=== PATIENT | female | born 1990 | race Caucasian/White ===

== ENCOUNTER 2018-06-29 00:03 | Observation (INO) ==
[2018-06-29] MEDS ORDERED: PENICILLIN G POTASSIUM 5 MILLIONUNT in DEXTROSE 5 % IN WATER 100 ML IV ONE ×2 (00:53)
[2018-06-29] MEDS ORDERED: BETAMETHASONE ACETATE,SOD PHOS 6 MG/ML VIAL IM ONE (00:53)
[2018-06-29] MEDS ORDERED: RINGER'S SOLUTION,LACTATED 1,000 ML IV PRN ×2 (00:53→01:02)
[2018-06-29] MEDS ORDERED: TERBUTALINE SULFATE 1 MG/ML VIAL SC ONE ×2 (01:13→03:11)
[2018-06-29 02:02] LABS: Urine Bilirubin Negative (NEGATIVE); Urine Blood Negative /ul (NEGATIVE); Urine Ketone Negative (NEGATIVE); Urine Nitrite Negative (NEGATIVE); Urine Protein Negative (NEGATIVE); Urine Specific Gravity <=1.005 SP.GR. (1.005-1.010); Urine Urobilinogen Normal (NORMAL)
[2018-06-29 02:03] LABS: Urine Appearance Clear (CLEAR); Urine Bacteria TRACE; Urine Color Pale Yellow; Urine RBC None Seen /hpf (0-5); Urine WBC TRACE /hpf (0-5)
[2018-06-29 02:15] LABS: Cocaine Ur Negative (NEGATIVE); Urine Barbiturate Negative (NEGATIVE); Urine Benzodiazepines Negative (NEGATIVE); Urine Opiates Negative (NEGATIVE); Urine PCP Negative (NEGATIVE); Urine THC Negative (NEGATIVE)
--- NOTE | 2018-06-29 03:18 | HP ---
Chief Complaint - Chief Complaint Date of Service: 06/29/18 Time of Service: 02:57 Chief Complaint: contractions History of Present Illness: 28 yo at 33 1/7 weeks presents to L&D complaining of contractions of increasing frequency and intensity over the past several hours which have failed to respond to conservative measures. Patient denies recent coitus, trauma, or illness. Denies LOF, vaginal bleeding, or decreased movement. This pegnancy complicated by anemia, threatened labor and tobacco use. Rh negative Rubella immune GBS positive Medical History (Last Reviewed 06/29/18 @ 03:02 by Roger Rose DO) Tobacco abuse Onset Date: 10/29/13 Anemia affecting Onset Date: 10/24/13 10/24/13 & 05/24/18 Epigastric pain History of chlamydia infection Onset Date: ~2008 History of wisdom tooth extraction Onset Date: ~09/2012 Surgical History: Surgical History (Last Reviewed 06/29/18 @ 03:02 by Roger Rose DO) Hx of cholecystectomy Onset Date: 10/16/12 Family History: Family History (Last Reviewed 06/29/18 @ 03:02 by Roger Rose DO) Father Alive and well Mother Alive and well Grandfather Multiple sclerosis Social History: Preferred Language Thai Smoking Status Former smoker (Last Updated 06/14/18 @ 10:56 by Roger Rose DO) No Social History Section defined Review Of Systems (GEN) - Review of Systems Generalized/Overall Review: Present: No Symptoms Reported EENTM: Present: No Symptoms Reported Respiratory: Present: No Symptoms Reported Cardiac: Present: No Symptoms Reported Abdominal: Present: Other - contractions Genitourinary: Present: No Symptoms Reported Musculoskeletal: Present: No Symptoms Reported Neurological: Present: No Symptoms Reported Skin: Present: No Symptoms Reported Endocrine: Present: No Symptoms Reported Immunizations: IMMUNIZATION HX Immunizations Up to Date Yes History of Influenza Vaccine No Hx Pneumococcal Vaccination No Allergies/Adverse Reactions: Allergies Allergy/AdvReac Type Severity Reaction Status Date / Time No Known Allergies Allergy Verified 06/29/18 02:03 Home Medications: HOME MEDICATIONS Vits96/Iron Fum/Folic [ S] 1 tab PO DAILY 01/01/14 [Last Taken 12/30/13 21:00] ferrous sulfate 325 mg (65 mg iron) tablet 325 mg PO DAILY #30 tab 05/24/18 [Last Taken Unknown] Exam - Exam Vital Signs: T 36.6 C, BP 119/59, P 96, R 18, O2 98% Constitutional: Present: Alert, Oriented x3, Cooperative, Mild distress ENT Exam: Present: hearing grossly normal Breasts: Present: Exam deferred Respiratory: Present: lungs clear, no respiratory distress Cardiovascular/Chest: Present: normal peripheral pulses, regular rate, rhythm, no edema Abdomen: Present: soft, nontender, no rebound tenderness, other - gravid /Rectal: Present: Other - cervix changed from cl/th/high to 1/80/-2. Extremity: Present: no pedal edema, no calf tenderness Skin Exam: Present: normal color, warm/dry, no cyanosis Neurologic: Present: alert, normal mood/affect, oriented x 3 Appearance: Present: appropriate appearance, appropriate insight Eye contact: Present: cooperative, good eye contact, normal speech Thoughts: Present: normal thought pattern Diagnostic Studies: Abnormal Lab Results 06/29/18 Range/Units 02:00 Ur Leukocyte Esterase 75 H (NEGATIVE) /ul Laboratory Results Urine Color Pale yellow 06/29/18 02:00 Urine Appearance Clear (CLEAR) 06/29/18 02:00 Urine pH 7.0 pH (5.0-7.0) 06/29/18 02:00 Ur Specific [place] <=1.005 SP.GR. (1.005-1.010) 06/29/18 02:00 Urine Protein Negative mg/dL (NEGATIVE) 06/29/18 02:00 Urine Glucose (UA) Negative mg/dL (NEGATIVE) 06/29/18 02:00 Urine Ketones Negative mg/dL (NEGATIVE) 06/29/18 02:00 Urine Blood Negative /ul (NEGATIVE) 06/29/18 02:00 Urine Nitrate Negative (NEGATIVE) 06/29/18 02:00 Urine Bilirubin Negative mg/dl (NEGATIVE) 06/29/18 02:00 Urine Urobilinogen Normal EU/dl (NORMAL) 06/29/18 02:00 Ur Leukocyte Esterase 75 /ul (NEGATIVE) H 06/29/18 02:00 Urine RBC None seen /hpf (0-5) 06/29/18 02:00 Urine WBC Trace /hpf (0-5) 06/29/18 02:00 Ur Epithelial Cells 0-5 /hpf (0-5) 06/29/18 02:00 Urine Bacteria Trace (NONE) 06/29/18 02:00 Urine Opiates Screen Negative (NEGATIVE) 06/29/18 02:00 Barbiturate Screen Negative (NEGATIVE) 06/29/18 02:00 Ur Phencyclidine Scrn Negative (NEGATIVE) 06/29/18 02:00 Urine Amphetamine Negative (NEGATIVE) 06/29/18 02:00 U Benzodiazepines Scrn Negative (NEGATIVE) 06/29/18 02:00 Urine Cocaine Screen Negative (NEGATIVE) 06/29/18 02:00 Urine Marijuana (THC) Negative (NEGATIVE) 06/29/18 02:00 Bedside ultrasound - vertex NST reactive. FHT 130, good BTBV, accelerations, no decels CTXs q1-2 min Assessment/Plan - Assessment/Plan (1) labor in third trimester Assessment: Due to patient's status below our nursery's capability, the inability to stop contractions and cervical change will transfer to [facility]. Accepting physician is Dr. Bean. Problem: Acute Qualifiers: labor delivery status: without delivery Qualified Code(s): O60.03 - labor without delivery, third trimester (2) Group beta Strep positive Problem: Acute (3) Tobacco abuse Problem: Acute (4) Anemia Problem: Acute Qualifiers: Anemia type: iron deficiency Iron deficiency anemia type: inadequate dietary iron intake Qualified Code(s): D50.8 - Other iron deficiency anemias
[2018-06-29] MEDS ORDERED: PENICILLIN G POTASSIUM 2.5 MILLIONUNT in DEXTROSE 5 % IN WATER 100 ML IV SCH ×2 (05:00)
== END 2018-06-29 03:35 | disposition short-term general hospital (02) ==
LOC: OBCLINIC 00:03 → OB 00:03
PROVIDERS: ADMIT Obstetrics & Gynecology; ATTEND Obstetrics & Gynecology
DX: O60.03 Preterm labor without delivery, third trimester; D50.8 Other iron deficiency anemias
CPT/HCPCS: 59025; 80307; 81001; 96372; G0378

== ENCOUNTER 2018-07-31 15:36 | Inpatient (IN) ==
[2018-07-31] MEDS: RINGER'S SOLUTION,LACTATED 1,000 ML IV ONE ×2 (16:14→20:14)
[2018-07-31] MEDS ORDERED: PENICILLIN G POTASSIUM 5 MILLIONUNT in DEXTROSE 5 % IN WATER 100 ML IV ONE ×2 (16:47)
[2018-07-31] MEDS ORDERED: OXYTOCIN/DEXTROSE 5%-WATER 30 UNITS/500 ML BAG IV ONE ×2 (16:47→22:59)
[2018-07-31] MEDS ORDERED: ONDANSETRON HCL/PF 2 MG/ML VIAL IV PRN ×2 (16:47→16:51)
[2018-07-31] MEDS ORDERED: NALOXONE HCL 1 MG/1 ML SYRG IV PRN (16:51)
[2018-07-31] MEDS ORDERED: BUPIVACAINE HCL/0.9 % NACL/PF 250 ML EP PRN (16:51)
--- NOTE | 2018-07-31 16:55 | ANES ---
Anesthesia Pre Procedure Eval HOME MEDICATIONS Vits96/Iron Fum/Folic [ S] 1 tab PO DAILY 01/01/14 [Last Taken 07/29/18 07:15] ferrous sulfate 325 mg (65 mg iron) tablet 325 mg PO DAILY #30 tab 05/24/18 [Last Taken 07/31/18 09:15] Allergies/Adverse Reactions: Allergies Allergy/AdvReac Type Severity Reaction Status Date / Time No Known Allergies Allergy Verified 07/31/18 15:16 - Planned Procedure Planned Procedure: Labor epidural Medication List Reviewed:: Yes Allergies Verified: Yes Medical History (Last Reviewed 07/31/18 @ 16:53 by Patrick Armijo CRNA) Tobacco abuse Onset Date: 10/29/13 Anemia affecting Onset Date: 10/24/13 10/24/13 & 05/24/18 Epigastric pain History of chlamydia infection Onset Date: ~2008 History of wisdom tooth extraction Onset Date: ~09/2012 Surgical History (Last Reviewed 07/31/18 @ 16:53 by Patrick Armijo CRNA) Hx of cholecystectomy Onset Date: 10/16/12 Family History (Last Reviewed 07/31/18 @ 16:53 by Patrick Armijo CRNA) Father Alive and well Mother Alive and well Grandfather Multiple sclerosis - Respiratory Smoking Status: Current every day smoker Discussed smoking cessation including day of surgery: No - Cardiovascular Tolerate Activity: Good Heart Sounds: S1 & S2, Regular - Anesthesia Assessment and Plan ASA Class: PS, II Anesthesia Type Plan: Epidural
[2018-07-31] MEDS ORDERED: BUPIVACAINE HCL/PF 30 ML VIAL EP SCH (17:00)
--- NOTE | 2018-07-31 17:27 | ANES ---
Anesthesia Procedure Note Procedure Note: ANESTHESIA PROCEDURE NOTE Date of Procedure: 07/31/2018. Time of procedure: 1710. Performed by: Patrick Armijo CRNA Pickup Driver: None. Preprocedure diagnosis: Active labor. Post procedure diagnosis: Same. Procedure: Insertion of labor epidural. Indications: The patient is a 28 -year-old female in active labor requesting labor epidural for pain management. Findings: See below. Details of the procedure: The patient was placed in a sitting position. DuraPrep as well as Betadine swabs X3 was applied to the patient's back. Patient was then draped in a sterile fashion. Lidocaine 1% was infiltrated to the skin and subcutaneous tissues at the level of the L3-4 interspace. The epidural space was identified using a 18-gauge Tuohy needle with [id number] technique. Epidural catheter was inserted to a depth of 10 centimeters at skin. Negative test dose was elicited using 3 mL of 1.5% preservative-free lidocaine plus epinephrine 1 200,000. The epidural catheter was then taped and secured in place. A loading dose of 8 mL of 0.25% preservative-free bupivacaine was administered to the epidural catheter after negative aspiration for blood and CSF. EBL: Minimal. Fluids: N/A. Specimen: N/A. Post procedure condition: The patient tolerated the procedure well. No complications were noted. Thank you for this consultation. Patrick Armijo CRNA
--- NOTE | 2018-07-31 17:30 | ANES ---
Post Anesthesia Assessment - Vital Signs Vitals: Last Vital Signs Temp 36.9 C 07/31/18 17:28 Pulse 90 07/31/18 17:28 Resp 18 07/31/18 17:28 BP 113/70 07/31/18 17:28 Pulse Ox 100 07/31/18 17:28 Airway Patency: Normal - Mental Status Level Of Consciousness: Awake - Pain Level Pain Score: 0 - N/V Assessment Nausea/Vomiting Presence: None Dehydration:: No
--- NOTE | 2018-07-31 18:02 | HP ---
Chief Complaint - Chief Complaint Date of Service: 07/31/18 Time of Service: 17:58 Chief Complaint: contractions History of Present Illness: 28 yo at 37 5/7 weeks presents to L&D complaining of contractions with increasing frequency and intensity. This complicated by anemia, smoking and PTL. Rh negative Rubella immune GBS positive Medical History (Last Reviewed 07/31/18 @ 18:08 by Roger Rose DO) Tobacco abuse Onset Date: 10/29/13 Anemia affecting Onset Date: 10/24/13 10/24/13 & 05/24/18 Epigastric pain History of chlamydia infection Onset Date: ~2008 History of wisdom tooth extraction Onset Date: ~09/2012 Surgical History: Surgical History (Last Reviewed 07/31/18 @ 18:08 by Roger Rose DO) Hx of cholecystectomy Onset Date: 10/16/12 Family History: Family History (Last Reviewed 07/31/18 @ 18:08 by Roger Rose DO) Father Alive and well Mother Alive and well Grandfather Multiple sclerosis Social History: Preferred Language Kiswahili Smoking Status Current every day smoker (Last Updated 07/31/18 @ 15:41 by Roger Rose DO) No Social History Section defined Review Of Systems (GEN) - Review of Systems Generalized/Overall Review: Present: No Symptoms Reported EENTM: Present: No Symptoms Reported Respiratory: Present: No Symptoms Reported Cardiac: Present: No Symptoms Reported Abdominal: Present: Other - contractions Genitourinary: Present: No Symptoms Reported Musculoskeletal: Present: No Symptoms Reported Neurological: Present: No Symptoms Reported Skin: Present: No Symptoms Reported Endocrine: Present: No Symptoms Reported Immunizations: IMMUNIZATION HX Immunizations Up to Date Yes History of Influenza Vaccine No Hx Pneumococcal Vaccination No Allergies/Adverse Reactions: Allergies Allergy/AdvReac Type Severity Reaction Status Date / Time No Known Allergies Allergy Verified 07/31/18 15:16 Home Medications: HOME MEDICATIONS RX: Vits96/Iron Fum/Folic [ S] 1 tab PO DAILY 01/01/14 [Last Taken 07/29/18 07:15] ferrous sulfate 325 mg (65 mg iron) tablet 325 mg PO DAILY #30 tab 05/24/18 [Last Taken 07/31/18 09:15] Exam - Exam Vital Signs: Vital Signs - Last Taken Temp 36.9 C 07/31/18 17:28 Pulse 90 07/31/18 17:28 Resp 18 07/31/18 17:28 BP 113/70 07/31/18 17:28 Pulse Ox 100 07/31/18 17:28 Constitutional: Present: Alert, Oriented x3, Cooperative, No distress ENT Exam: Present: hearing grossly normal Breasts: Present: Exam deferred Respiratory: Present: lungs clear, no respiratory distress Cardiovascular/Chest: Present: regular rate, rhythm Abdomen: Present: soft, nontender, no rebound tenderness, other - gravid /Rectal: Present: Other - cervix - 4-5/70/-1 Extremity: Present: no pedal edema, no calf tenderness Skin Exam: Present: normal color, warm/dry, no cyanosis Neurologic: Present: alert, normal mood/affect, oriented x 3 Appearance: Present: appropriate appearance, appropriate insight Eye contact: Present: cooperative, good eye contact Thoughts: Present: normal thought pattern Assessment/Plan - Assessment/Plan (1) Labor established Assessment: Admit for routine managment of labor. IV PCN for GBS prophylaxis. Epidural PRN. Problem: Acute (2) Group beta Strep positive Problem: Acute (3) Tobacco abuse Problem: Acute (4) Anemia Problem: Acute Qualifiers: Anemia type: iron deficiency Iron deficiency anemia type: inadequate dietary iron intake Qualified Code(s): D50.8 - Other iron deficiency anemias
--- NOTE | 2018-07-31 18:31 | PN ---
Progess Note - Interim Date: 07/31/18 Time: 18:29 Narrative: 07/31/18 18:29 Patient comfortable with epidural Vital signs stable. Status post 1 dose of penicillin approximately 1645. FHT: 120 baseline, reassuring Contractions q 3-4 min Cervix: 5/80/-1, AROM-clear Impression: Intrauterine at 37-5/7 weeks in labor. GBS positive- status post 1 dose of IV penicillin Plan: Continue present plan. Anticipate normal spontaneous vaginal delivery shortly after second dose of penicillin.
[2018-07-31 19:02] LABS: Cocaine Ur Negative (NEGATIVE); Urine Barbiturate Negative (NEGATIVE); Urine Benzodiazepines Negative (NEGATIVE); Urine Opiates Negative (NEGATIVE); Urine PCP Negative (NEGATIVE); Urine THC Negative (NEGATIVE)
[2018-07-31] MEDS ORDERED: PENICILLIN G POTASSIUM 2.5 MILLIONUNT in DEXTROSE 5 % IN WATER 100 ML IV SCH ×2 (20:48)
[2018-07-31] MEDS ORDERED: BISACODYL 10 MG SUPP.RECT RC PRN (22:59)
[2018-07-31] MEDS ORDERED: BENZOCAINE/MENTHOL 81 SPRAY CAN TP PRN (22:59)
[2018-07-31] MEDS ORDERED: GLYCERIN/WITCH HAZEL LEAF 40 APPL BOX TP PRN (22:59)
[2018-07-31] MEDS ORDERED: HYDROCORTISONE 30 APPL TUBE TP PRN (22:59)
[2018-07-31] MEDS ORDERED: SENNOSIDES 8.6 MG TABLET PO PRN (22:59)
[2018-07-31] MEDS ORDERED: oxyCODONE HCL/ACETAMINOPHEN 1 TAB TABLET PO PRN (22:59)
--- NOTE | 2018-07-31 23:08 | OR ---
Operative Report - Dictated Report Narrative: Spontaneous vaginal delivery of viable male at 2245 on 07/31/2018 with Apgars 7 and 10, weighing 3521 g in TRINITY position with nuchal cord 1. Placenta delivered complete, intact, with three vessel cord Estimated blood loss: less than 50 ml Anesthesia: epidural Lacerations: Clitoral arcos and posterior fourchette vaginal abrasions with no repair needed History for MU Definition: * The number of deliveries resulting in a live the patient experienced prior to current hospitalization * The previous delivery of live twins or any live multiple gestation is considered one live event. *If primagravida or nulliparous is documented select zero for the number of previous live births. Live Events: 2
[2018-08-01] MEDS: IBUPROFEN 800 MG TABLET PO PRN ×3 (01:19→16:53)
[2018-08-01] MEDS: oxyCODONE HCL/ACETAMINOPHEN 1 TAB TABLET PO PRN ×4 (05:58→21:17)
[2018-08-01] MEDS: DOCUSATE SODIUM 100 MG CAPSULE PO SCH ×3 (10:15→21:17)
--- NOTE | 2018-08-01 11:45 | PN ---
Subjective - Date and Time Seen Date: 08/01/18 Time: 11:44 Objective - Vitals Vitals: Last Vital Signs Temp 37.6 C 08/01/18 10:08 Pulse 85 08/01/18 10:08 Resp 17 08/01/18 10:08 BP 124/65 08/01/18 10:08 Pulse Ox 98 08/01/18 10:08 Patient denies complaints. Lochia wnl Abdomen - soft, nontender Uterus - firm, at umbilicus - 1 No calf tenderness Impression: day #1 - s/p spontaneous vaginal delivery. Plan: Continue routine care Cauti Physician Documentation - Urinary Catheter Management Urethral ([place]) Date of Insertion: 07/31/18 Time of Insertion: 17:40 Date of Removal: 07/31/18 Time of Removal: 22:30 Assessment/Plan - Problems/Diagnosis (1) Labor established Problem: Acute (2) Group beta Strep positive Problem: Acute (3) Tobacco abuse Problem: Acute (4) Anemia Problem: Acute Qualifiers: Anemia type: iron deficiency Iron deficiency anemia type: inadequate dietary iron intake Qualified Code(s): D50.8 - Other iron deficiency anemias
[2018-08-02] MEDS: IBUPROFEN 800 MG TABLET PO PRN ×2 (00:21→08:51)
[2018-08-02] MEDS: oxyCODONE HCL/ACETAMINOPHEN 1 TAB TABLET PO PRN (00:21)
[2018-08-02] MEDS: DOCUSATE SODIUM 100 MG CAPSULE PO SCH ×2 (10:05→10:06)
[2018-08-02 11:11] VITALS: BP 120/75
--- NOTE | 2018-08-02 13:45 | PN ---
Progess Note - Interim Date: 08/07/18 Time: 18:05 Narrative: 08/07/18 18:05 Note started in error.
== END 2018-08-02 14:10 | disposition home or self-care (01) | DRG 806 ==
LOC: OBCLINIC 15:36 → OB 16:48
PROVIDERS: ADMIT Obstetrics & Gynecology; ATTEND Obstetrics & Gynecology
CPT/HCPCS: 59025; 80307